=== PATIENT | female | born 1975 | race Caucasian/White ===

== ENCOUNTER 2016-07-16 19:30 | Emergency (ER) | payer OTHER | END 2016-07-16 20:56 | disposition home or self-care (01) | LOC: ER 19:30 | DX: J06.9 Acute upper respiratory infection, unspecified (principal); R05 Cough; Z20.828 Contact with and (suspected) exposure to other viral communicable diseases; Z79.899 Other long term (current) drug therapy | CPT/HCPCS: 71020; 87070; 87880; 99283 ==